=== PATIENT | female | born 1975 | race African-American/Black ===

== ENCOUNTER 2016-09-02 18:20 | Emergency (ER) | payer MEDICAID ==
[~2016-09-02] VITALS: Ht 165.1 cm; Wt 79.4 kg
[2016-09-02 20:30] VITALS: BP 134/82
== END 2016-09-02 21:08 | disposition home or self-care (01) ==
LOC: ER 18:31
DX: J40 Bronchitis, not specified as acute or chronic (principal)

== ENCOUNTER 2017-05-14 10:38 | Emergency (ER) | payer MEDICAID ==
[~2017-05-14] VITALS: Ht 172.7 cm; Wt 83.9 kg
[2017-05-14 12:03] VITALS: BP 146/60
== END 2017-05-14 12:29 | disposition home or self-care (01) ==
LOC: ER 10:38
DX: J20.9 Acute bronchitis, unspecified (principal)